=== PATIENT | female | born 1990 | race Asian ===

== ENCOUNTER → 2017-06-28 | Outpatient (CLI) | payer OTHER ==
--- NOTE | 2017-06-28 20:00 | ECHOCARDIOGRAM REPORT ---
*NOTICE TO RECEIVING [employer] This information is strictly Confidential and protected under [place] law. [place] law prohibits you from making any further disclosure of this information unless further disclosure is expressly permitted by the written consent of the person to whom it pertains or is authorized by law. A general authorization for the release of medical or other information is not sufficient for this purpose. Hospital accepts no responsibility if the information is made available to any other person, INCLUDING THE PATIENT. Interpretation Summary * Name: DIMPLE GUERRIER Study Date: 06/28/2017 12:38 PM BP: 90/56 mmHg * Patient Location: [facility] HR: 71 * : 1990 (M/d/yyyy) Gender: Female Height: 61 in * Age: 26 yrs Ethnicity: Weight: 111 lb * Ordering Physician: Naima Weber * Referring Physician: Naima Weber * Performed By: Carlie Olguin RDCS * * Reason For Study: Syncope during excercise * BSA: 1.5 m2 * -- Conclusions -- * 1. Normal left ventricular size and systolic function. EF 60-65%. No regional wall motion abnormalities. No left ventricular hypertrophy. No significant diastolic dysfunction. * 2. No significant valvular abnormalities. * 3. No prior study available for comparison. Procedure Details * A complete two-dimensional transthoracic echocardiogram was performed (2D, M-mode, Doppler and color flow Doppler). Left Ventricle * Normal left ventricular size and systolic function. EF 60-65%. No regional wall motion abnormalities. No left ventricular hypertrophy. No significant diastolic dysfunction. Right Ventricle * The right ventricle is normal in size and function. * The right ventricular systolic function is normal as assessed by tricuspid annular plane systolic excursion (TAPSE) (normal >1.5 cm). Atria * The left atrial size is normal. * Right atrial size is normal. * There is no evidence of atrial septal defect, but resolution does not allow assessment for a patent foramen ovale. Mitral Valve * The mitral valve leaflets appear normal. There is no evidence of stenosis, fluttering, or prolapse. * There is no mitral regurgitation noted. Tricuspid Valve * The tricuspid valve is not well visualized, but is grossly normal. * There is no tricuspid stenosis. * No tricuspid regurgitation. Aortic Valve * The aortic valve is trileaflet. * No hemodynamically significant valvular aortic stenosis. * No aortic regurgitation is present. Pulmonic Valve * The pulmonic valve is not well seen, but is grossly normal. * There is no pulmonic valvular stenosis. * Mild pulmonic valvular regurgitation. Great Vessels * The aortic root is normal size. * Ascending aorta of normal dimension * Aortic arch of normal dimension. * Normal pulmonary venous flow pattern. Pericardium/Pleural * There is no pericardial effusion. Great Vessels * Normal inferior vena cava size and collapsability with sniff indicates a normal right atrial pressure of 3 mmHg MMode 2D Measurements and Calculations IVSd 0.67 cm LVIDd 4.2 cm LVIDs 2.7 cm LVPWd 0.79 cm IVS/LVPW 0.84 FS 35.0 % EDV(Teich) 79.6 ml ESV(Teich) 28.2 ml EF(Teich) 64.6 % EDV(cubed) 75.3 ml ESV(cubed) 20.7 ml EF(cubed) 72.5 % LV mass(C)d 90.4 grams LV mass(C)dI 61.5 grams/m\S\2 SV(Teich) 51.4 ml SI(Teich) 35.0 ml/m\S\2 SV(cubed) 54.6 ml SI(cubed) 37.1 ml/m\S\2 Ao root diam 2.3 cm Ao root area 4.3 cm\S\2 ACS 1.5 cm LA dimension 2.8 cm asc Aorta Diam 2.2 cm LA/Ao 1.2 LVOT diam 1.7 cm LVOT area 2.3 cm\S\2 LVAd ap4 19.5 cm\S\2 LVLd ap4 7.1 cm EDV(MOD-sp4) 44.0 ml EDV(sp4-el) 45.1 ml LVAs ap4 11.0 cm\S\2 LVLs ap4 6.0 cm ESV(MOD-sp4) 17.6 ml ESV(sp4-el) 17.0 ml EF(MOD-sp4) 60.1 % EF(sp4-el) 62.2 % LVAd ap2 16.1 cm\S\2 LVLd ap2 7.2 cm EDV(MOD-sp2) 31.4 ml EDV(sp2-el) 30.3 ml LVAs ap2 8.3 cm\S\2 LVLs ap2 5.5 cm ESV(MOD-sp2) 10.9 ml ESV(sp2-el) 10.6 ml EF(MOD-sp2) 65.1 % EF(sp2-el) 65.1 % LVLd %diff 1.5 % EDV(MOD-bp) 37.1 ml LVLs %diff -9.96 % ESV(MOD-bp) 14.1 ml EF(MOD-bp) 62.1 % SV(MOD-sp4) 26.4 ml SI(MOD-sp4) 18.0 ml/m\S\2 SV(MOD-sp2) 20.5 ml SI(MOD-sp2) 13.9 ml/m\S\2 SV(MOD-bp) 23.0 ml SI(MOD-bp) 15.7 ml/m\S\2 SV(sp4-el) 28.1 ml SI(sp4-el) 19.1 ml/m\S\2 SV(sp2-el) 19.7 ml SI(sp2-el) 13.4 ml/m\S\2 Doppler Measurements and Calculations MV E max ector 83.6 cm/sec MV A max ector 61.5 cm/sec MV E/A 1.4 MV dec time 0.21 sec Ao V2 max 127.7 cm/sec Ao max PG 6.5 mmHg Ao max PG (full) 2.4 mmHg SYDNEE(V,A) 1.8 cm\S\2 SYDNEE(V,D) 1.8 cm\S\2 LV V1 max PG 4.2 mmHg LV V1 max 102.1 cm/sec PA V2 max 77.6 cm/sec PA max PG 2.4 mmHg PA acc slope 438.7 cm/sec\S\2 PA acc time 0.14 sec PI max ector 81.1 cm/sec PI max PG 2.6 mmHg PI dec slope 77.3 cm/sec\S\2 PI P1/2t 307.4 msec PA pr(Accel) 16.5 mmHg
== END | disposition home or self-care (01) ==
LOC: C.CPL 12:30
PROVIDERS: ATTEND Family Medicine
DX: R55 Syncope and collapse (principal)